=== PATIENT | female | born 1980 | race Caucasian/White ===

== ENCOUNTER 2017-08-25 08:13 | Outpatient (CLI) | payer OTHER ==
[~2017-08-25 08:13] MED LIST: CARAFATE SU1 G/10 ML; DICY20TA; GILTUSS PO; KEPPRA500 MG PO; LEVAQUIN750 MG PO; PROTONIX40 MG
== END 2017-08-25 15:59 | disposition home or self-care (01) ==
LOC: TOM 08:13
DX: R10.9 Unspecified abdominal pain (principal)

== ENCOUNTER 2018-03-26 15:26 | Emergency (ER) | payer OTHER ==
[~2018-03-26] VITALS: Ht 162.6 cm; Wt 72.6 kg
[2018-03-26] MEDS ORDERED: TRIMETHOPRIM100 MG (16:12)
== END 2018-03-26 22:30 | disposition home or self-care (01) ==
LOC: ER 15:26
DX: N39.0 Urinary tract infection, site not specified (principal); N83.291 Other ovarian cyst, right side

== ENCOUNTER 2018-05-21 13:16 | Emergency (ER) | payer OTHER ==
[~2018-05-21] VITALS: Ht 162.6 cm; Wt 72.6 kg
[~2018-05-21 13:16] MED LIST changes: +TRIMETHOPRIM100 MG
== END 2018-05-21 19:49 | disposition home or self-care (01) ==
LOC: ER 13:16
DX: J06.9 Acute upper respiratory infection, unspecified (principal)

== ENCOUNTER 2019-02-19 18:51 | Emergency (ER) | payer OTHER ==
[~2019-02-19] VITALS: Ht 170.2 cm; Wt 74.8 kg
[2019-02-19] MEDS ORDERED: NEXIUM 24HR20 M1 PO (23:03)
[2019-02-19] MEDS ORDERED: CARAFATE1 GM PO (23:03)
[2019-02-19] MEDS ORDERED: ZOFRAN8 MG SL (23:03)
== END 2019-02-20 00:04 | disposition home or self-care (01) ==
LOC: ER 18:51
DX: K29.70 Gastritis, unspecified, without bleeding (principal)

== ENCOUNTER 2022-04-13 09:55 | Emergency (ER) | payer OTHER ==
[~2022-04-13] VITALS: Ht 162.6 cm; Wt 68.0 kg
[~2022-04-13 09:55] MED LIST changes: +CARAFATE1 GM PO; +NEXIUM 24HR20 M1 PO; +ZOFRAN8 MG SL
[2022-04-13] MEDS ORDERED: BYSTOLIC10 MG PO (10:39)
== END 2022-04-13 10:58 | disposition home or self-care (01) ==
LOC: ER 09:55
DX: N39.0 Urinary tract infection, site not specified (principal); R30.0 Dysuria; I10 Essential (primary) hypertension; Z91.041 Radiographic dye allergy status